=== PATIENT | male | born 1940 | race Caucasian/White ===

== ENCOUNTER → 2017-11-05 09:22 | Outpatient (CLI) | payer MEDICARE | END | disposition home or self-care (01) | LOC: D.RAD 09:22 | DX: G89.29 Other chronic pain (principal) ==

== ENCOUNTER → 2018-02-04 07:14 | Outpatient (CLI) | payer MEDICARE | END | disposition home or self-care (01) | LOC: D.MRI 07:14 | DX: M54.16 Radiculopathy, lumbar region (principal) ==